=== PATIENT | male | born 1960 | race Caucasian/White ===

== ENCOUNTER 2025-01-09 23:05 | Emergency (ER) | payer OTHER, BC ==
[~2025-01-09] VITALS: Ht 198.1 cm; Wt 118.0 kg
[~2025-01-09 23:05] MED LIST: FLOMAX0.4 MG; MS CONTIN15 MG PO; NORCO 7.5-3251 EACH PO; PRAVASTATIN SOD20 MG PO; ULTRAM50 MG PO; XARELTO10 MG PO
[2025-01-09] MEDS ORDERED: MORPHINE SULFATE 4 MG/ML VIAL IV ONE (23:15)
[2025-01-09 23:20] LABS: BASOPHILS 1.0 % (0.2-1.2); EOSINOPHILS 2.4 % (0.8-7.0); LYMPHOCYTES 9.9 % (21.8-53.1); MCH 28.3 PG (25.7-32.2); MCHC 31.8 g/dL (32.3-36.5); MCV 88.9 fL (79.0-92.2); MONOCYTES 7.5 % (5.3-12.2); NEUTROPHILS 78.6 % (34.0-67.9); RBC 4.77 M/uL (4.63-6.08)
[2025-01-09 23:35] LABS: ALCOHOL, MEDICAL <3 ng/dL (<3); ALT (SGPT) 24 U/L (14-59); AST (SGOT) 25 U/L (15-37); GLOMERULAR FILTRATION RATE,EST 61 mL/min (>60); PROTEIN, TOTAL 7.0 g/dL (6.4-8.2); UREA NITROGEN 19 mg/dL (7-18)
[2025-01-09] MEDS ORDERED: LACTATED RINGER'S 1,000 ML IV ONE (23:45)
[2025-01-09 23:53] LABS: ABO AB; ANTIBODY SCREEN NEGATIVE; RH POSITIVE
[2025-01-10] MEDS ORDERED: MORPHINE SULFATE 4 MG/ML VIAL IV ONE (00:30)
[2025-01-10] MEDS ORDERED: HYDROmorphone HCL 1 MG/ML SYR ONE (01:30)
[2025-01-10] MEDS ORDERED: TRANEXAMIC ACID IN NACL,ISO-OS 1,000 MG/100 ML PIGGYBACK IV SCH (03:15)
[2025-01-10] MEDS ORDERED: LACTATED RINGER'S 1,000 ML IV ONE ×2 (03:15→04:00)
[2025-01-10] MEDS ORDERED: HYDROmorphone HCL 1 MG/ML SYR IV PRN (03:15)
[2025-01-10] MEDS ORDERED: LACTATED RINGER'S 1,000 ML IV SCH ×2 (03:45→05:15)
[2025-01-10 07:11] VITALS: BP 158/105
--- NOTE | 2025-01-10 09:08 | EKG ---
[facility] [address] [facility] [place] [address] Signed Normal sinus rhythm Nonspecific T wave abnormality Abnormal ECG No previous ECGs available Confirmed by Luis Correa MD ([id number]) on 01/10/2025 9:08:39 AM Electronically Signed By: LUIS CORREA MD 01/10/25907 PATIENT NAME: MARYJACQUELINE Electrocardiogram DATE OF : 60 PHYSICIAN: LUIS CORREA MD REPORT #: [id number] REPORT IS CONFIDENTIAL AND NOT TO BE RELEASED WITHOUT AUTHORIZATION
== END 2025-01-10 07:12 | disposition short-term general hospital (02) ==
LOC: ED 23:05
PROVIDERS: Internal Medicine
DX: S42.212A Unspecified displaced fracture of surgical neck of left humerus, initial encounter for closed fracture (principal); S42.101A Fracture of unspecified part of scapula, right shoulder, initial encounter for closed fracture; S22.31XA Fracture of one rib, right side, initial encounter for closed fracture; S82.101A Unspecified fracture of upper end of right tibia, initial encounter for closed fracture; M97.11XA Periprosthetic fracture around internal prosthetic right knee joint, initial encounter; S82.831A Other fracture of upper and lower end of right fibula, initial encounter for closed fracture; S22.069A Unspecified fracture of T7-T8 vertebra, initial encounter for closed fracture; V29.99XA Rider (driver) (passenger) of other motorcycle injured in unspecified traffic accident, initial encounter; Z79.899 Other long term (current) drug therapy
CPT/HCPCS: 36415; 70450; 71045; 71260; 72125; 72170; 73030; 73590; 73700; 74177; 80053; 80307; 82550; 85025; 86850; 86900; 86901; 93005; 93010; 96365; 96375; 96376; 99285-25; G0480; J1171; J2270; J2405; J7121; Q9967